=== PATIENT | female | born 1935 | race Caucasian/White ===

== ENCOUNTER 2016-08-27 14:19 | Inpatient (IN) | payer MEDICARE, BC ==
[~2016-08-27] VITALS: Ht 162.6 cm; Wt 91.3 kg
[2016-08-27] MEDS ORDERED: SODIUM CHLORIDE 0.9% 250 ML IV ONE (15:13)
[2016-08-27 15:51] LABS: INR 1.2; PARTIAL THROMBOPLASTIN TIME 35.5 sec (24.0-34.0); PROTHROMBIN TIME 12.4 sec
[2016-08-27 15:59] LABS: BASOPHILS % 0.4 % (0.0-2.0); EOSINOPHILS % 0.5 % (0.0-5.0); HEMATOCRIT. 41.9 % (36.0-48.0); HEMOGLOBIN. 13.7 g/dL (12.0-16.0); LYMPHOCYTES % 13.8 % (20.0-50.0); MEAN CORPUSCULAR VOLUME 91.8 fL (81.0-99.0); MEAN PLATELET VOLUME 8.2 fl (7.4-10.4); MONOCYTES % 8.3 % (2.0-8.0); PLATELET 265 x1000/uL (130-400); RED BLOOD CELL COUNT 4.56 mill/uL (4.2-5.4); RED CELL DISTRIBUTION WIDTH 12.8 % (11.6-14.6)
[2016-08-27 16:01] LABS: CARBON DIOXIDE 26 mEq/L (21-32); CHLORIDE 103 mEq/L (98-107); TROPONIN I 0.03 ng/mL (0.00-0.04)
[2016-08-27] MEDS ORDERED: NA PHOS,M-B/NA PHOS,DI-BA ENEMA 118ML PR PRN (22:45)
[2016-08-27] MEDS ORDERED: ACETAMINOPHEN 650MG SUPP PR PRN (22:45)
[2016-08-27] MEDS ORDERED: ONDANSETRON HCL 4MG/2ML VIAL IV PRN (22:45)
[2016-08-27] MEDS ORDERED: MAGNESIUM/ALUMINUM HYDROXIDE/SIMETHICONE 30ML UDC PO PRN (22:45)
[2016-08-28] MEDS ORDERED: BENA20TA3 PO (00:48)
[2016-08-28] MEDS ORDERED: TRAV2.5D EACHEYE (00:48)
[2016-08-28] MEDS ORDERED: CLOP75TA16 PO (00:48)
[2016-08-28] MEDS ORDERED: ROSU10TA PO (00:48)
[2016-08-28] MEDS ORDERED: METF500T4 PO (00:48)
[2016-08-28] MEDS ORDERED: METO-411 PO (00:48)
[2016-08-28] MEDS ORDERED: BRIN8DRO OP (00:48)
[2016-08-28] MEDS ORDERED: DONE10TA11 PO (00:48)
[2016-08-28] MEDS ORDERED: LEVO112T7 PO (00:48)
[2016-08-28 06:25] LABS: BASOPHILS % 0.7 % (0.0-2.0); EOSINOPHILS % 4.3 % (0.0-5.0); HEMATOCRIT. 39.9 % (36.0-48.0); HEMOGLOBIN. 13.4 g/dL (12.0-16.0); LYMPHOCYTES % 14.7 % (20.0-50.0); MEAN CORPUSCULAR HEMOGLOBIN 30.6 pg (28.0-32.0); MEAN CORPUSCULAR VOLUME 91.1 fL (81.0-99.0); MEAN PLATELET VOLUME 8.2 fl (7.4-10.4); MONOCYTES % 11.7 % (2.0-8.0); NEUTROPHILS % 68.6 % (40.0-76.0); PLATELET 261 x1000/uL (130-400); RED BLOOD CELL COUNT 4.37 mill/uL (4.2-5.4); RED CELL DISTRIBUTION WIDTH 13.2 % (11.6-14.6)
[2016-08-28 06:34] LABS: CARBON DIOXIDE 25 mEq/L (21-32); CHLORIDE 105 mEq/L (98-107)
[2016-08-28] MEDS ORDERED: DEXTROSE 50% WATER 50ML SYRINGE IV PRN (06:45)
[2016-08-28] MEDS: BLOOD SUGAR DIAGNOSTIC STRIP TEST SCH ×4 (06:48→20:58)
[2016-08-28] MEDS ORDERED: LEVOTHYROXINE SODIUM 112MCG TABLET PO SCH (07:20)
[2016-08-28] MEDS: INSULIN LISPRO 100 UNITS/ML SUBCUT SCH ×4 (07:50→20:57)
[2016-08-28] MEDS ORDERED: MEDICATION NOT ON FORMULARY EA (Metoprolol Succinate 1 TAB) PO SCH (09:00)
[2016-08-28] MEDS ORDERED: MEDICATION NOT ON FORMULARY EA (Rosuvastatin Calcium (Crestor) 1 TAB) PO SCH (09:00)
[2016-08-28] MEDS ORDERED: MEDICATION NOT ON FORMULARY EA (Brinzolamide/Brimonid Tart (Simbrinza 1%-0.2% Eye Drops) OP SCH (09:00)
[2016-08-28] MEDS: CLOPIDOGREL 75MG TABLET PO SCH (09:07)
[2016-08-28] MEDS: ENOXAPARIN 40MG/0.4ML SYR SUBCUT SCH (09:08)
[2016-08-28] MEDS: DONEPEZIL HCL 10MG TABLET PO SCH (09:08)
[2016-08-28] MEDS: METOPROLOL TARTRATE 50MG TABLET PO SCH ×2 (09:08→20:57)
[2016-08-28] MEDS: BRIMONIDINE 0.2% OPHTH DROPS 5ML BOTHEYE SCH ×2 (09:09→18:03)
[2016-08-28] MEDS: DORZOLAMIDE 2% OPHTH 10 ML BOTTLE BOTHEYE SCH ×2 (09:10→18:02)
[2016-08-28] MEDS: BENAZEPRIL 20MG TABLET PO SCH (09:12)
[2016-08-28] MEDS ORDERED: POTASSIUM CHLORIDE 20MEQ TABLET SR PO NR (09:30)
[2016-08-28] MEDS ORDERED: MEDICATION NOT ON FORMULARY EA (Travoprost (Travatan Z) 1 DROP) EACHEYE SCH (17:00)
[2016-08-28] MEDS: METFORMIN HCL 500MG TABLET PO SCH (18:02)
[2016-08-28] MEDS: ATORVASTATIN CALCIUM 20MG TABLET PO SCH (20:56)
[2016-08-28] MEDS: LATANOPROST 0.005% OPHTH DROPS 2.5ML EACHEYE SCH (20:57)
[2016-08-28 22:18] LABS: CLARITY URINE CLOUDY (CLEAR); COLOR URINE YELLOW (YELLOW); KETONES URINE TRACE (NEGATIVE); LEUKOCYTE ESTERASE URINE 2+ (NEGATIVE); NITRITE URINE NEGATIVE (NEGATIVE); OCCULT BLOOD URINE TRACE (NEGATIVE); PH URINE 5.5 (4.5-8.0); PROTEIN URINE TRACE (NEGATIVE); SPECIFIC GRAVITY URINE 1.028 (1.005-1.030); UROBILINOGEN URINE 0.2 E.U./dL (0.2-1.0)
[2016-08-29] MEDS: CLONIDINE 0.1MG TABLET PO PRN (00:48)
[2016-08-29 05:49] LABS: CARBON DIOXIDE 27 mEq/L (21-32); CHLORIDE 107 mEq/L (98-107)
[2016-08-29 06:34] LABS: VITAMIN B12 SERUM 1594 pg/mL (211-911)
[2016-08-29] MEDS: BLOOD SUGAR DIAGNOSTIC STRIP TEST SCH ×4 (06:37→21:32)
[2016-08-29] MEDS: LEVOTHYROXINE SODIUM 137MCG TABLET PO SCH (06:37)
[2016-08-29] MEDS ORDERED: LEVOTHYROXINE SODIUM 137MCG TABLET PO SCH (07:20)
[2016-08-29 07:23] LABS: BASOPHILS % 0.5 % (0.0-2.0); EOSINOPHILS % 4.9 % (0.0-5.0); HEMATOCRIT. 38.9 % (36.0-48.0); LYMPHOCYTES % 19.6 % (20.0-50.0); MEAN CORPUSCULAR HEMOGLOBIN 30.6 pg (28.0-32.0); MEAN CORPUSCULAR VOLUME 91.5 fL (81.0-99.0); MEAN PLATELET VOLUME 8.4 fl (7.4-10.4); MONOCYTES % 10.9 % (2.0-8.0); NEUTROPHILS % 64.1 % (40.0-76.0); PLATELET 268 x1000/uL (130-400); RED BLOOD CELL COUNT 4.26 mill/uL (4.2-5.4); RED CELL DISTRIBUTION WIDTH 12.8 % (11.6-14.6)
[2016-08-29] MEDS: INSULIN LISPRO 100 UNITS/ML SUBCUT SCH ×3 (07:50→21:00)
[2016-08-29] MEDS: ENOXAPARIN 40MG/0.4ML SYR SUBCUT SCH (09:13)
[2016-08-29] MEDS: BRIMONIDINE 0.2% OPHTH DROPS 5ML BOTHEYE SCH ×2 (09:14→19:01)
[2016-08-29] MEDS: DONEPEZIL HCL 10MG TABLET PO SCH (09:14)
[2016-08-29] MEDS: METOPROLOL TARTRATE 50MG TABLET PO SCH ×2 (09:14→21:49)
[2016-08-29] MEDS: CLOPIDOGREL 75MG TABLET PO SCH (09:14)
[2016-08-29] MEDS: BENAZEPRIL 20MG TABLET PO SCH (09:14)
[2016-08-29] MEDS: DORZOLAMIDE 2% OPHTH 10 ML BOTTLE BOTHEYE SCH ×2 (09:15→19:01)
[2016-08-29] MEDS ORDERED: GADOBENATE DIMEGLUMINE 529 MG/ML 10ML IV ONE (11:48)
[2016-08-29] MEDS: LEVOFLOXACIN 500MG PREMIX 100 ML IV SCH (12:41)
[2016-08-29] MEDS: METFORMIN HCL 500MG TABLET PO SCH (19:01)
[2016-08-29] MEDS: ATORVASTATIN CALCIUM 20MG TABLET PO SCH (21:48)
[2016-08-29] MEDS: LATANOPROST 0.005% OPHTH DROPS 2.5ML EACHEYE SCH (21:48)
[2016-08-30 05:40] LABS: BASOPHILS % 0.4 % (0.0-2.0); EOSINOPHILS % 3.6 % (0.0-5.0); HEMATOCRIT. 38.8 % (36.0-48.0); LYMPHOCYTES % 19.5 % (20.0-50.0); MEAN CORPUSCULAR HEMOGLOBIN 30.5 pg (28.0-32.0); MEAN CORPUSCULAR VOLUME 91.1 fL (81.0-99.0); MEAN PLATELET VOLUME 8.1 fl (7.4-10.4); MONOCYTES % 13.2 % (2.0-8.0); NEUTROPHILS % 63.3 % (40.0-76.0); PLATELET 258 x1000/uL (130-400); RED BLOOD CELL COUNT 4.26 mill/uL (4.2-5.4); RED CELL DISTRIBUTION WIDTH 12.9 % (11.6-14.6)
[2016-08-30 05:49] LABS: CARBON DIOXIDE 26 mEq/L (21-32); CHLORIDE 107 mEq/L (98-107)
[2016-08-30] MEDS: INSULIN LISPRO 100 UNITS/ML SUBCUT SCH ×4 (06:15→20:41)
[2016-08-30] MEDS: BLOOD SUGAR DIAGNOSTIC STRIP TEST SCH ×4 (06:15→20:40)
[2016-08-30] MEDS: DORZOLAMIDE 2% OPHTH 10 ML BOTTLE BOTHEYE SCH ×2 (09:00→17:54)
[2016-08-30] MEDS: BRIMONIDINE 0.2% OPHTH DROPS 5ML BOTHEYE SCH ×2 (09:00→17:54)
[2016-08-30] MEDS: METOPROLOL TARTRATE 50MG TABLET PO SCH ×2 (09:30→20:42)
[2016-08-30] MEDS: LEVOTHYROXINE SODIUM 137MCG TABLET PO SCH (09:30)
[2016-08-30] MEDS: CLOPIDOGREL 75MG TABLET PO SCH (09:30)
[2016-08-30] MEDS: ENOXAPARIN 40MG/0.4ML SYR SUBCUT SCH (09:31)
[2016-08-30] MEDS: DONEPEZIL HCL 10MG TABLET PO SCH (10:00)
[2016-08-30] MEDS: BENAZEPRIL 20MG TABLET PO SCH (10:00)
[2016-08-30] MEDS: LEVOFLOXACIN 500MG PREMIX 100 ML IV SCH (14:00)
[2016-08-30] MEDS: METFORMIN HCL 500MG TABLET PO SCH (17:30)
[2016-08-30] MEDS: CLONIDINE 0.1MG TABLET PO PRN (18:21)
[2016-08-30] MEDS: LATANOPROST 0.005% OPHTH DROPS 2.5ML EACHEYE SCH (20:41)
[2016-08-30] MEDS: ATORVASTATIN CALCIUM 20MG TABLET PO SCH (20:41)
[2016-08-31 05:22] LABS: BASOPHILS % 0.6 % (0.0-2.0); EOSINOPHILS % 3.6 % (0.0-5.0); HEMATOCRIT. 38.2 % (36.0-48.0); HEMOGLOBIN. 12.9 g/dL (12.0-16.0); LYMPHOCYTES % 19.7 % (20.0-50.0); MEAN CORPUSCULAR HEMOGLOBIN 30.7 pg (28.0-32.0); MEAN CORPUSCULAR VOLUME 90.8 fL (81.0-99.0); MEAN PLATELET VOLUME 8.4 fl (7.4-10.4); MONOCYTES % 10.9 % (2.0-8.0); NEUTROPHILS % 65.2 % (40.0-76.0); PLATELET 242 x1000/uL (130-400); RED BLOOD CELL COUNT 4.21 mill/uL (4.2-5.4); RED CELL DISTRIBUTION WIDTH 12.9 % (11.6-14.6)
[2016-08-31] MEDS: LEVOTHYROXINE SODIUM 137MCG TABLET PO SCH (05:41)
[2016-08-31] MEDS: BLOOD SUGAR DIAGNOSTIC STRIP TEST SCH ×4 (05:41→20:39)
[2016-08-31 05:48] LABS: CARBON DIOXIDE 24 mEq/L (21-32); CHLORIDE 108 mEq/L (98-107); PHOSPHORUS 2.9 mg/dL (2.5-4.9)
[2016-08-31] MEDS: INSULIN LISPRO 100 UNITS/ML SUBCUT SCH ×4 (07:00→20:45)
[2016-08-31] MEDS: ENOXAPARIN 40MG/0.4ML SYR SUBCUT SCH (08:41)
[2016-08-31] MEDS: BENAZEPRIL 20MG TABLET PO SCH ×2 (08:41→17:25)
[2016-08-31] MEDS: CLOPIDOGREL 75MG TABLET PO SCH (08:41)
[2016-08-31] MEDS: METOPROLOL TARTRATE 50MG TABLET PO SCH ×2 (08:42→20:39)
[2016-08-31] MEDS: DONEPEZIL HCL 10MG TABLET PO SCH (08:42)
[2016-08-31] MEDS: BRIMONIDINE 0.2% OPHTH DROPS 5ML BOTHEYE SCH ×2 (08:43→17:25)
[2016-08-31] MEDS: DORZOLAMIDE 2% OPHTH 10 ML BOTTLE BOTHEYE SCH ×2 (08:44→17:26)
[2016-08-31] MEDS ORDERED: MAGNESIUM 2 G PREMIX 50 ML IV SCH (09:00)
[2016-08-31] MEDS: LEVOFLOXACIN 500MG PREMIX 100 ML IV SCH (13:18)
[2016-08-31] MEDS: METFORMIN HCL 500MG TABLET PO SCH (17:25)
[2016-08-31] MEDS: ATORVASTATIN CALCIUM 20MG TABLET PO SCH (20:35)
[2016-08-31] MEDS: LATANOPROST 0.005% OPHTH DROPS 2.5ML EACHEYE SCH (20:36)
[2016-09-01] MEDS: CLONIDINE 0.1MG TABLET PO PRN (03:12)
[2016-09-01 06:40] LABS: BASOPHILS % 0.5 % (0.0-2.0); EOSINOPHILS % 3.5 % (0.0-5.0); HEMATOCRIT. 38.7 % (36.0-48.0); HEMOGLOBIN. 12.8 g/dL (12.0-16.0); LYMPHOCYTES % 22.4 % (20.0-50.0); MEAN CORPUSCULAR HEMOGLOBIN 30.5 pg (28.0-32.0); MEAN PLATELET VOLUME 8.2 fl (7.4-10.4); NEUTROPHILS % 61.6 % (40.0-76.0); PLATELET 237 x1000/uL (130-400); RED BLOOD CELL COUNT 4.21 mill/uL (4.2-5.4); RED CELL DISTRIBUTION WIDTH 12.6 % (11.6-14.6)
[2016-09-01] MEDS: BLOOD SUGAR DIAGNOSTIC STRIP TEST SCH ×4 (06:56→20:28)
[2016-09-01] MEDS: BENAZEPRIL 20MG TABLET PO SCH ×2 (06:56→17:24)
[2016-09-01] MEDS: LEVOTHYROXINE SODIUM 137MCG TABLET PO SCH (06:56)
[2016-09-01] MEDS: INSULIN LISPRO 100 UNITS/ML SUBCUT SCH ×4 (07:01→20:35)
[2016-09-01 07:07] LABS: CARBON DIOXIDE 26 mEq/L (21-32); CHLORIDE 107 mEq/L (98-107); PHOSPHORUS 3.1 mg/dL (2.5-4.9)
[2016-09-01] MEDS: BRIMONIDINE 0.2% OPHTH DROPS 5ML BOTHEYE SCH ×2 (08:49→17:23)
[2016-09-01] MEDS: ENOXAPARIN 40MG/0.4ML SYR SUBCUT SCH (08:49)
[2016-09-01] MEDS: CLOPIDOGREL 75MG TABLET PO SCH (08:49)
[2016-09-01] MEDS: DONEPEZIL HCL 10MG TABLET PO SCH (08:49)
[2016-09-01] MEDS: DORZOLAMIDE 2% OPHTH 10 ML BOTTLE BOTHEYE SCH ×2 (08:49→17:23)
[2016-09-01] MEDS: METOPROLOL TARTRATE 50MG TABLET PO SCH ×2 (08:50→20:27)
[2016-09-01] MEDS ORDERED: MAGNESIUM 2 G PREMIX 50 ML IV NR (11:00)
[2016-09-01] MEDS: LEVOFLOXACIN 500MG PREMIX 100 ML IV SCH (11:21)
[2016-09-01] MEDS: METFORMIN HCL 500MG TABLET PO SCH (17:23)
[2016-09-01] MEDS: ATORVASTATIN CALCIUM 20MG TABLET PO SCH (20:27)
[2016-09-01] MEDS: LATANOPROST 0.005% OPHTH DROPS 2.5ML EACHEYE SCH (20:27)
[2016-09-02] MEDS: CLONIDINE 0.1MG TABLET PO PRN ×2 (00:21→17:32)
[2016-09-02] MEDS: BENAZEPRIL 20MG TABLET PO SCH ×2 (06:24→17:32)
[2016-09-02] MEDS: BLOOD SUGAR DIAGNOSTIC STRIP TEST SCH ×4 (06:30→21:00)
[2016-09-02] MEDS: LEVOTHYROXINE SODIUM 137MCG TABLET PO SCH (06:30)
[2016-09-02] MEDS: INSULIN LISPRO 100 UNITS/ML SUBCUT SCH ×4 (07:14→21:00)
[2016-09-02] MEDS: CLOPIDOGREL 75MG TABLET PO SCH (08:33)
[2016-09-02] MEDS: METOPROLOL TARTRATE 50MG TABLET PO SCH ×2 (08:33→20:24)
[2016-09-02] MEDS: DONEPEZIL HCL 10MG TABLET PO SCH (08:33)
[2016-09-02] MEDS: ENOXAPARIN 40MG/0.4ML SYR SUBCUT SCH (08:33)
[2016-09-02] MEDS: BRIMONIDINE 0.2% OPHTH DROPS 5ML BOTHEYE SCH ×2 (08:34→17:33)
[2016-09-02] MEDS: DORZOLAMIDE 2% OPHTH 10 ML BOTTLE BOTHEYE SCH ×2 (08:34→17:33)
[2016-09-02] MEDS: NITROFURANTOIN 100MG M/M CAPSULE PO SCH ×2 (10:25→20:24)
[2016-09-02] MEDS: AMLODIPINE 5MG TABLET PO SCH ×2 (10:25→20:24)
[2016-09-02] MEDS: METFORMIN HCL 500MG TABLET PO SCH (17:32)
[2016-09-02] MEDS: ATORVASTATIN CALCIUM 20MG TABLET PO SCH (20:24)
[2016-09-02] MEDS: LATANOPROST 0.005% OPHTH DROPS 2.5ML EACHEYE SCH (20:25)
[2016-09-03] MEDS: BENAZEPRIL 20MG TABLET PO SCH (05:32)
[2016-09-03 06:48] LABS: CARBON DIOXIDE 23 mEq/L (21-32); CHLORIDE 106 mEq/L (98-107); PHOSPHORUS 2.7 mg/dL (2.5-4.9)
[2016-09-03 07:01] LABS: BASOPHILS % 0.6 % (0.0-2.0); EOSINOPHILS % 3.3 % (0.0-5.0); HEMATOCRIT. 40.3 % (36.0-48.0); HEMOGLOBIN. 13.4 g/dL (12.0-16.0); LYMPHOCYTES % 21.2 % (20.0-50.0); MEAN CORPUSCULAR HEMOGLOBIN 30.5 pg (28.0-32.0); MEAN CORPUSCULAR VOLUME 91.8 fL (81.0-99.0); MEAN PLATELET VOLUME 7.9 fl (7.4-10.4); MONOCYTES % 11.5 % (2.0-8.0); NEUTROPHILS % 63.4 % (40.0-76.0); PLATELET 267 x1000/uL (130-400); RED BLOOD CELL COUNT 4.39 mill/uL (4.2-5.4); RED CELL DISTRIBUTION WIDTH 12.8 % (11.6-14.6)
[2016-09-03] MEDS: BLOOD SUGAR DIAGNOSTIC STRIP TEST SCH (08:00)
[2016-09-03] MEDS: INSULIN LISPRO 100 UNITS/ML SUBCUT SCH (08:00)
[2016-09-03] MEDS: LEVOTHYROXINE SODIUM 137MCG TABLET PO SCH (08:38)
[2016-09-03] MEDS: DONEPEZIL HCL 10MG TABLET PO SCH (08:38)
[2016-09-03] MEDS: CLOPIDOGREL 75MG TABLET PO SCH (08:38)
[2016-09-03] MEDS: METOPROLOL TARTRATE 50MG TABLET PO SCH (08:39)
[2016-09-03] MEDS: AMLODIPINE 5MG TABLET PO SCH (08:39)
[2016-09-03] MEDS: NITROFURANTOIN 100MG M/M CAPSULE PO SCH (08:39)
[2016-09-03] MEDS: ENOXAPARIN 40MG/0.4ML SYR SUBCUT SCH (08:40)
[2016-09-03] MEDS: DORZOLAMIDE 2% OPHTH 10 ML BOTTLE BOTHEYE SCH (08:40)
[2016-09-03] MEDS: BRIMONIDINE 0.2% OPHTH DROPS 5ML BOTHEYE SCH (08:40)
[2016-09-03 09:44] VITALS: BP 145/64
[2016-09-03] MEDS ORDERED: MAGNESIUM 2 G PREMIX 50 ML IV NR (13:00)
== END 2016-09-03 09:55 | DRG 65 ==
LOC: ER 15:20 → 6WST 15:56 → ENRESERV 17:26 → MICUSO 08-29 17:28 → 5EST 08-31 11:06
PROVIDERS: ADMIT Internal Medicine Nephrology; ATTEND Internal Medicine Nephrology
DX: I63.9 Cerebral infarction, unspecified (principal); E44.1 Mild protein-calorie malnutrition; N39.0 Urinary tract infection, site not specified; I69.351 Hemiplegia and hemiparesis following cerebral infarction affecting right dominant side; M10.9 Gout, unspecified; B96.20 Unspecified Escherichia coli [E. coli] as the cause of diseases classified elsewhere; D64.9 Anemia, unspecified; E03.9 Hypothyroidism, unspecified; E05.00 Thyrotoxicosis with diffuse goiter without thyrotoxic crisis or storm; E11.9 Type 2 diabetes mellitus without complications; E66.9 Obesity, unspecified; E78.00 Pure hypercholesterolemia, unspecified; E86.0 Dehydration; E87.6 Hypokalemia; F32.9 Major depressive disorder, single episode, unspecified; H26.9 Unspecified cataract; H40.9 Unspecified glaucoma; I10 Essential (primary) hypertension; K59.00 Constipation, unspecified; M19.90 Unspecified osteoarthritis, unspecified site; M46.02 Spinal enthesopathy, cervical region; M46.90 Unspecified inflammatory spondylopathy, site unspecified; R13.10 Dysphagia, unspecified; R32 Unspecified urinary incontinence; Z79.84 Long term (current) use of oral hypoglycemic drugs; Z68.34 Body mass index [BMI] 34.0-34.9, adult; Z79.899 Other long term (current) drug therapy; Z87.891 Personal history of nicotine dependence; R26.9 Unspecified abnormalities of gait and mobility
CPT/HCPCS: 36415; 70450; 70547; 70551; 71010; 72141; 72170; 73590; 80048; 80053; 81001; 82553; 82607; 82962; 83735; 83880; 84100; 84443; 84484; 85025; 85610; 85730; 87077; 87086; 87186; 92523; 92610; 93005; 93306; 93970; 97162; 97164; 97167; 97530; 97535; 99291; A6261; A9577; C1893; J1650; J1815; J1956; J3475; J7030; J7040; J7050; A4315